=== PATIENT | female | born 1980 | race Two or more races ===

== ENCOUNTER 2024-08-26 16:58 | Inpatient (IN) | payer MEDICAID, OTHER ==
[~2024-08-26] VITALS: Ht 149.9 cm; Wt 92.5 kg
[2024-08-26] MEDS: ACETAMINOPHEN 325 MG TAB PO ONE (17:12)
[2024-08-26 17:49] LABS: Basophils # (auto) 0 10 ^3/uL (0-0.2); Basophils % (auto) 0.4 % (0.0-2.0); Eosinophils # (auto) 0 10 ^3/uL (0-0.8); Eosinophils % (auto) 0.1 % (0.0-7.0); Hematocrit 39.4 % (36.0-46.0); Hemoglobin 13.4 g/dL (12.2-16.2); Lymphocytes # (auto) 0.5 10 ^3/uL (0.4-5.4); Mean Corpuscular Hemoglobin 29.7 pg (28.0-32.0); Mean Corpuscular Volume 87.3 fL (80.0-100.0); Monocytes # (auto) 0.4 10 ^3/uL (0-1.3); Monocytes % (auto) 3.6 % (0.0-12.0); Neutrophils # (auto) 11.3 10 ^3/uL (1.6-8.6); Neutrophils % (auto) 91.9 % (37.0-80.0); Platelet Count (auto) 247 10^3/uL (140-450); Red Blood Cells 4.52 10^6/uL (4.0-5.20); Red Cell Distribution Width 13.7 % (11.8-14.3); White Blood Cell 12.3 10^3/uL (4.4-10.8)
--- NOTE | 2024-08-26 17:53 | DVH ---
Exam: CT CT AB PEL WO CON-NO ORAL OR IV History: abd pain Comparison Study: None TECHNIQUE: Multidetector CT of the abdomen and pelvis was performed from lung bases to pubic symphysi s. Imaging was performed without IV contrast. Axial, coronal, and sagittal multiplanar reformats were obtained from the axial data set by the technologist. RADIATION DOSE: DLP 1054.48 mGy.cm; CTDI vol 18.81 mGy. Findings: Lungs: The lung bases are clear. Heart: No cardiomegaly or pericardial effusion. Liver: Fatty infiltration of the liver. Liver measures 20.0 cm in craniocaudal dimension. Gallbladder: Cholecystectomy. Spleen: Unremarkable Pancreas: Unremarkable Adrenals: Unremarkable Kidneys: Punctate nonobstructive left nephrolithiasis. Mild left perinephric inflammatory changes. N o evidence of ureteral or urinary bladder calculi. GI tract: Unremarkable : Unremarkable. Vasculature: Unremarkable Lymphadenopathy: Absent Peritoneum: No ascites Musculoskeletal: Mild multilevel degenerative changes of the thoracolumbar spine. Soft tissues: Unremarkable Impression: 1. No acute abdominopelvic abnormalities. 2. Mild left perinephric inflammatory changes with nonobstructive left nephrolithiasis. Findings may reflect a recently passed calculus. 3. No evidence of ureteral or urinary bladder calculi. 4. Hepatomegaly with hepatic steatosis.
[2024-08-26] MEDS: VANCOMYCIN 1GM/200ML PM 200 ML IV ONE (17:54)
[2024-08-26] MEDS: cefTRIAXone 1GM/50ML D5W 50 ML IV ONE (17:54)
[2024-08-26] MEDS: SODIUM CHLORIDE 0.9% 1,350 ML IV ONE (17:54)
[2024-08-26 18:07] LABS: Urine Bacteria MOD /hpf (None Seen); Urine Blood Negative /uL (Negative); Urine Clarity Turbid (Clear); Urine Color Yellow (Yellow); Urine Mucus FEW (None Seen); Urine Protein, UAD Negative (Negative); Urine Specific Gravity 1.016 (1.001-1.035); Urine Squamous Epithelial Cell FEW /hpf (<5); Urine Urobilinogen 6 mg/dL (Negative); Urine WBC 70 /HPF (0-5)
[2024-08-26 18:08] LABS: Alanine Aminotransferase 21 U/L (7-40); Alkaline Phosphatase 97 U/L (46-116); Anion Gap 9 (5-15); Aspartate Aminotransferase 17 U/L (13-40); BUN/Creatinine Ratio 7.2 (10.0-20.0); Carbon Dioxide 21 mmol/L (20-31); Chloride 101 mmol/L (98-107); Lipase 33 U/L (12-53); Total Protein 7.5 g/dL (5.7-8.2)
[2024-08-26 18:09] LABS: Albumin 4.5 g/dL (3.2-4.8)
[2024-08-26 18:37] LABS: Bilirubin, Total 1.4 mg/dL (0.2-1.0); Blood Urea Nitrogen 6 mg/dL (9-23); Calcium 8.7 mg/dL (8.7-10.4); Glucose 201 mg/dL (74-106); Potassium 3.4 mmol/L (3.5-5.1); Sodium 131 mmol/L (136-145)
[2024-08-26 18:43] LABS: Lactic Acid w/Reflex 2.3 mmol/L (0.4-2.0)
--- NOTE | 2024-08-26 19:10 | ED.PDOC ---
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 Worse today. 01/30. States she does have history of frequent urinary tract infections. States the pain is more specifically in the left lower quadrant. Nothing makes it better, nothing makes it worse. States she has been having nausea vomiting diarrhea today. Intermittent chills. Upon arrival patient was tachycardic and does have fever. Chief Complaint: Pelvic Pain Time Seen by MD: 17:07 Reviewed Notes: Nurses Notes Allergies: Coded Allergies: NO KNOWN ALLERGIES (Unverified , 08/26/24) Information Source: Patient Past Medical History PAST MEDICAL HISTORY: Denies Surgical History: Denies all surgeries DRILL OPERATOR History: No Pertinent DRILL OPERATOR History Constitutional: reports: chills, fatigue, fever, malaise; denies: diaphoresis, sweats, weakness, others EENTM: denies: blurred vision, double vision, ear bleeding, ear discharge, ear drainage, ear pain, ear ringing, eye pain, eye redness, hearing loss, mouth pain, mouth swelling, nasal discharge, nose bleeding, nose congestion, nose pain, photophobia, tearing, throat pain, throat swelling, voice changes, others Respiratory: denies: cough, hemoptysis, orthopnea, SOB at rest, shortness of breath, SOB with excertion, stridor, wheezing, others Cardiovascular: denies: chest pain, dizzy spells, diaphoresis, Dyspnea on exertion, edema, irregular heart beat, left arm pain, lightheadedness, palpitations, PND, syncope, others Gastrointestinal: reports: abdominal pain, diarrhea, nausea, vomiting; denies: abdomen distended, blood streaked bowels, constipated, dysphagia, difficulty swallowing, hematemesis, melena, poor appetite, poor fluid intake, rectal bleeding, rectal pain, others Genitourinary: denies: abnormal vagina bleeding, burning, dyspareunia, dysuria, flank pain, frequency, hematuria, incontinence, pain, , vagina discharge, urgency, others Neurological: denies: dizziness, fainting, headache, left sided numbness, left sided weakness, numbness, paresthesia, pre-existing deficit, right sided numbness, right sided weakness, seizure, speech problems, tingling, tremors, weakness, others Musculoskeletal: denies: back pain, gout, joint pain, joint swelling, muscle pain, muscle stiffness, neck pain, others Integumetry: denies: bruises, change in color, change in hair/nails, dryness, laceration, lesions, lumps, rash, wounds, others Physical Exam General Appearance: Moderate Distress, Obese HEENT: Normal ENT Inspection, Pharynx Normal, TMs Normal Neck: Full Range of Motion, Non-Tender, Normal, Normal Inspection Respiratory: Chest Non-Tender, Lungs Clear, No Accessory Muscle Use, No Respiratory Distress, Normal Breath Sounds Cardiovascular: No Edema, No JVD, No Murmur, No Gallop, Normal Peripheral Pulses, Regular Rate/Rhythm Breast Exam: Deferred Gastrointestinal: Diffuse (Diffuse lower quadrant tenderness.), No Organomegaly, Normal Bowel Sounds, Soft Genitalia: Deferred Pelvic: Deferred Rectal: Deferred Extremities: No calf tenderness, Normal capillary refill, Normal inspection, Normal range of motion, Non-tender, No pedal edema Musculoskeletal : Apperance: Normal Neurologic: Alert, technical asst II-XII nml as Tested, No Motor Deficits, Normal Affect, Normal Mood, No Sensory Deficits Cerebellar Function: Normal Reflexes: Normal Skin: Dry, Normal Color, Warm Lymphatic: No Adenopathy Was a procedure done? Was a procedure done?: No Differential Diagnosis (DRILL OPERATOR) Vaginal Bleeding: UTI Mass / Lesion: PID Vaginal Discharge: UTI X-Ray, Labs, Meds, VS Vital Signs Date Time Temp Pulse Resp B/P (MAP) Pulse Ox O2 Delivery O2 Flow Rate FiO2 08/26/24 18:31 99.7 104 15 117/67 (84) 98 99.7 08/26/24 17:12 101.0 08/26/24 17:02 101.0 120 24 129/78 (95) 100 101.0 Lab Test 08/26/24 17:45 08/26/24 17:36 08/26/24 17:09 Range/Units Lactic Acid Level 2.3 *H 0.4-2.0 mmol/L White Blood Count 12.3 H 4.4-10.8 10^3/uL Red Blood Count 4.52 4.0-5.20 10^6/uL Hemoglobin 13.4 12.2-16.2 g/dL Hematocrit 39.4 36.0-46.0 % Mean Corpuscular Volume 87.3 80.0-100.0 fL Mean Corpuscular Hemoglobin 29.7 28.0-32.0 pg Mean Corpuscular Hemoglobin Concent 34.0 32.0-36.0 g/dL Red Cell Distribution Width 13.7 11.8-14.3 % Platelet Count 247 140-450 10^3/uL Mean Platelet Volume 6.7 L 6.9-10.8 fL Neutrophils (%) (Auto) 91.9 H 37.0-80.0 % Lymphocytes (%) (Auto) 4.0 L 10.0-50.0 % Monocytes (%) (Auto) 3.6 0.0-12.0 % Eosinophils (%) (Auto) 0.1 0.0-7.0 % Basophils (%) (Auto) 0.4 0.0-2.0 % Neutrophils # (Auto) 11.3 H 1.6-8.6 10 ^3/uL Lymphocytes # (Auto) 0.5 0.4-5.4 10 ^3/uL Monocytes # (Auto) 0.4 0-1.3 10 ^3/uL Eosinophils # (Auto) 0 0-0.8 10 ^3/uL Basophils # (Auto) 0 0-0.2 10 ^3/uL Nucleated Red Blood Cells 0.0 % Sodium Level 131 L 136-145 mmol/L Potassium Level 3.4 L 3.5-5.1 mmol/L Chloride Level 101 98-107 mmol/L Carbon Dioxide Level 21 20-31 mmol/L Anion Gap 9 5-15 Blood Urea Nitrogen 6 L 9-23 mg/dL Creatinine 0.83 0.550-1.02 mg/dL Glomerular Filtration Rate Calc 89 >90 mL/min BUN/Creatinine Ratio 7.2 L 10.0-20.0 Serum Glucose 201 H 74-106 mg/dL Calcium Level 8.7 8.7-10.4 mg/dL Total Bilirubin 1.4 H 0.2-1.0 mg/dL Aspartate Amino Transferase (AST) 17 13-40 U/L Alanine Aminotransferase (ALT) 21 7-40 U/L Alkaline Phosphatase 97 46-116 U/L Total Protein 7.5 5.7-8.2 g/dL Albumin 4.5 3.2-4.8 g/dL Lipase 33 12-53 U/L Urine Color Yellow Yellow Urine Clarity Turbid H Clear Urine pH 6.0 5.0-9.0 Urine Specific [place] 1.016 1.001-1.035 Urine Protein Negative Negative Urine Ketones Negative Negative Urine Blood Negative Negative /uL Urine Nitrite Negative Negative Urine Bilirubin Negative Negative Urine Urobilinogen 6 Negative mg/dL Urine Leukocyte Esterase 3+ Negative /uL Urine RBC 1 0 - 4 /hpf Urine Microscopic WBC 70 H 0-5 /HPF Urine Squamous Epithelial Cells Few <5 /hpf Urine Bacteria Mod H None Seen /hpf Urine Mucus Few None Seen Urine Glucose 3+ H Normal mg/dL Current Medications Medications (Trade) Dose Ordered Sig/Pedro Route Start Time Stop Time Status Last Admin Acetaminophen (Tylenol Tablet) 650 mg ONCE ONCE PO 08/26/24 17:15 08/26/24 17:16 DC 08/26/24 17:12 Ceftriaxone Sodium 50 ml @ 100 mls/hr ONCE ONCE IV 08/26/24 17:45 08/26/24 18:14 DC 08/26/24 17:54 Vancomycin HCl 200 ml @ 200 mls/hr ONCE ONCE IV 08/26/24 17:45 08/26/24 18:44 DC 08/26/24 17:54 Sodium Chloride 1,350 ml @ 1,350 mls/hr ONCE ONCE IV 08/26/24 17:45 08/26/24 18:44 DC 08/26/24 17:54 X-Ray, Labs, Meds, VS Comment Patient will be admitted for urinary tract infection, urosepsis Sepsis protocol started, patient given vancomycin and Rocephin Initial IV bolus given, 2nd IV bolus to be initiated Imaging: X-rays and CT scans were reviewed and interpreted by this provider, Impression: 1. No acute abdominopelvic abnormalities. 2. Mild left perinephric inflammatory changes with nonobstructive left nephrolithiasis. Findings may reflect a recently passed calculus. 3. No evidence of ureteral or urinary bladder calculi. 4. Hepatomegaly with hepatic steatosis. Laboratory: Labs reviewed and interpreted by this provider. Elevated white count, elevated lactic acid Patient has prior medical visits reviewed. Med reconciliation performed Vital signs reviewed Time of 1ST Reevaluation: 19:08 Reevaluation 1ST: Unchanged Patient Education/Counseling: Diagnosis, Treatment, Need For Follow Up Family Education/Counseling: No Family Present Departure 1 Departure Time of Disposition: 19:05 Impression: Primary Impression: Septicemia Additional Impression: Urinary tract infection Qualified Codes: N10 - Acute pyelonephritis Disposition: 09 ADMITTED INPATIENT Condition: Guarded Critical Care Note Critical Care Time?: No Stability Stability form required: No Heart Score Heart Score: Heart Score Response (Comments) Value History N/A 0 EKG N/A 0 Age N/A 0 Risk Factors N/A 0 Troponin N/A 0 Total 0 CONCHITA MELLOP August 26, 2024 19:10
[2024-08-26] MEDS: SODIUM CHLORIDE 0.9% 1,000 ML IV ONE (19:52)
[2024-08-26] MEDS ORDERED: ONDANSETRON HCL 4 MG/2 ML VIAL IV PRN (20:00)
[2024-08-26 21:30] VITALS: PULSE 116; RESP 20; O2SAT 96
[2024-08-26] MEDS: POTASSIUM CHL 20 Meq TABLET PO ONE (21:38)
[2024-08-26] MEDS: ACETAMINOPHEN 325 MG TAB PO PRN (21:39)
[2024-08-26 21:55] VITALS: PULSE 119; RESP 20; O2SAT 96
[2024-08-27] VITALS (7 sets, daily range): BP systolic 119–141; BP diastolic 66–77; PULSE 88–134; RESP 14–71; TEMP 97.8–102.1; O2SAT 94–98
[2024-08-27] MEDS: HYDROcodone-ACET 5/325MG TAB PO PRN (01:21)
--- NOTE | 2024-08-27 04:02 | DVHHP2 ---
History of Present Illness Reason for Visit: Abdominal pain History of Present Illness 44-year-old female presents for evaluation of lower abdominal pain. Patient reports a two day history of lower abdominal pain with associated dysuria, nausea, vomiting. Patient also reports intermittent fever. She states having a history of recurrent UTIs. Past Medical History UTI Past Surgical History Denies Family History Noncontributory Smoke: No ALCOHOL: none Drugs: None Lives: with Family Review of Systems Review of Systems Review of systems are currently negative otherwise addressed in HPI. Allergies: Coded Allergies: NO KNOWN ALLERGIES (Unverified , 08/26/24) Medications Current Medications Medications Dose Ordered Sig/Pedro Route Start Time Stop Time Status Last Admin Dose Admin Ceftriaxone Sodium 50 ml @ 100 mls/hr DAILY@09 IV 08/27/24 09:00 Acetaminophen/ Hydrocodone Bitart 1 tab Q4HP PRN PO 08/26/24 20:00 08/27/24 01:21 1 TAB Ondansetron HCl 4 mg Q4HP PRN IV 08/26/24 20:00 Acetaminophen 650 mg Q6HP PRN PO 08/26/24 20:00 08/26/24 21:39 650 MG Exam Vital Signs Vital Signs Date Time Temp Pulse Resp B/P (MAP) Pulse Ox O2 Delivery O2 Flow Rate FiO2 08/27/24 01:00 98.5 119 20 120/67 (84) 96 98.5 08/26/24 21:55 Nasal Cannula* 2 28 Exam Gen: 44-year-old female in mild distress Skin: Warm, dry, normal color and texture, no rash. HEENT: Normocephalic atraumatic, mucous membranes moist and pink. Neck: Cervical and supraclavicular nodes normal without enlargement, trachea is midline, thyroid gland is normal without masses. Pulmonary: Clear to auscultation and percussion bilaterally. Cardiac: Regular rate and rhythm. No murmur Abdomen: Soft, lower abdominal tenderness, nondistended, bowel sounds present all 4 quadrants, no guarding, no rigidity, no organomegaly. Extremities: No cyanosis, clubbing, no edema Neuro: Cranial nerves II through XII grossly intact, normal affect and speech, no focal motor deficits. Labs/Xrays ORDERING PHYSICIAN: CONCHITA MELLO PROCEDURE(s): ABPL - CT AB PEL WO CON-NO ORAL OR IV REASON: abd pain ORDER NUMBER(s): [id number], ACCESSION NUMBER(s): [id number] Exam: CT CT AB PEL WO CON-NO ORAL OR IV History: abd pain Comparison Study: None TECHNIQUE: Multidetector CT of the abdomen and pelvis was performed from lung bases to pubic symphysis. Imaging was performed without IV contrast. Axial, coronal, and sagittal multiplanar reformats were obtained from the axial data set by the technologist. RADIATION DOSE: DLP 1054.48 mGy.cm; CTDI vol 18.81 mGy. Findings: Lungs: The lung bases are clear. Heart: No cardiomegaly or pericardial effusion. Liver: Fatty infiltration of the liver. Liver measures 20.0 cm in craniocaudal dimension. Gallbladder: Cholecystectomy. Spleen: Unremarkable Pancreas: Unremarkable Adrenals: Unremarkable Kidneys: Punctate nonobstructive left nephrolithiasis. Mild left perinephric inflammatory changes. No evidence of ureteral or urinary bladder calculi. GI tract: Unremarkable : Unremarkable. Vasculature: Unremarkable Lymphadenopathy: Absent Peritoneum: No ascites Musculoskeletal: Mild multilevel degenerative changes of the thoracolumbar spine. Soft tissues: Unremarkable Impression: 1. No acute abdominopelvic abnormalities. 2. Mild left perinephric inflammatory changes with nonobstructive left nephrolithiasis. Findings may reflect a recently passed calculus. 3. No evidence of ureteral or urinary bladder calculi. 4. Hepatomegaly with hepatic steatosis. ATED BY: SONI ZUÑIGA DO DICTATED DATE/TIME: 08/26/24 7324 Labs Test 08/26/24 19:37 08/26/24 17:36 08/26/24 17:09 Range/Units Lactic Acid Level 1.7 0.4-2.0 mmol/L White Blood Count 12.3 H 4.4-10.8 10^3/uL Red Blood Count 4.52 4.0-5.20 10^6/uL Hemoglobin 13.4 12.2-16.2 g/dL Hematocrit 39.4 36.0-46.0 % Mean Corpuscular Volume 87.3 80.0-100.0 fL Mean Corpuscular Hemoglobin 29.7 28.0-32.0 pg Mean Corpuscular Hemoglobin Concent 34.0 32.0-36.0 g/dL Red Cell Distribution Width 13.7 11.8-14.3 % Platelet Count 247 140-450 10^3/uL Mean Platelet Volume 6.7 L 6.9-10.8 fL Neutrophils (%) (Auto) 91.9 H 37.0-80.0 % Lymphocytes (%) (Auto) 4.0 L 10.0-50.0 % Monocytes (%) (Auto) 3.6 0.0-12.0 % Eosinophils (%) (Auto) 0.1 0.0-7.0 % Basophils (%) (Auto) 0.4 0.0-2.0 % Neutrophils # (Auto) 11.3 H 1.6-8.6 10 ^3/uL Lymphocytes # (Auto) 0.5 0.4-5.4 10 ^3/uL Monocytes # (Auto) 0.4 0-1.3 10 ^3/uL Eosinophils # (Auto) 0 0-0.8 10 ^3/uL Basophils # (Auto) 0 0-0.2 10 ^3/uL Nucleated Red Blood Cells 0.0 % Sodium Level 131 L 136-145 mmol/L Potassium Level 3.4 L 3.5-5.1 mmol/L Chloride Level 101 98-107 mmol/L Carbon Dioxide Level 21 20-31 mmol/L Anion Gap 9 5-15 Blood Urea Nitrogen 6 L 9-23 mg/dL Creatinine 0.83 0.550-1.02 mg/dL Glomerular Filtration Rate Calc 89 >90 mL/min BUN/Creatinine Ratio 7.2 L 10.0-20.0 Serum Glucose 201 H 74-106 mg/dL Calcium Level 8.7 8.7-10.4 mg/dL Total Bilirubin 1.4 H 0.2-1.0 mg/dL Aspartate Amino Transferase (AST) 17 13-40 U/L Alanine Aminotransferase (ALT) 21 7-40 U/L Alkaline Phosphatase 97 46-116 U/L Total Protein 7.5 5.7-8.2 g/dL Albumin 4.5 3.2-4.8 g/dL Lipase 33 12-53 U/L Urine Color Yellow Yellow Urine Clarity Turbid H Clear Urine pH 6.0 5.0-9.0 Urine Specific [place] 1.016 1.001-1.035 Urine Protein Negative Negative Urine Ketones Negative Negative Urine Blood Negative Negative /uL Urine Nitrite Negative Negative Urine Bilirubin Negative Negative Urine Urobilinogen 6 Negative mg/dL Urine Leukocyte Esterase 3+ Negative /uL Urine RBC 1 0 - 4 /hpf Urine Microscopic WBC 70 H 0-5 /HPF Urine Squamous Epithelial Cells Few <5 /hpf Urine Bacteria Mod H None Seen /hpf Urine Mucus Few None Seen Urine Glucose 3+ H Normal mg/dL Assessment/Plan Assessment/Plan Assessment Complicated UTI Early sepsis Hyperglycemia Plan Admit the patient to [facility] to the hospitalist Kye Urine bacterial culture pending Continue treatment per orders. Plan discussed with: Patient My Orders Orders - LINDA JACOBSEN Procedure Category Date Status Time Urine Bacterial ERICK 08/26/24 In Process Culture 19:55 Regular Diet DIET 08/27/24 Transmitted Breakfast Ceftriaxone 1gm/50ml PHA 08/27/24 In Process D5w (Rocephin) 09:00 Basic Metabolic Panel LAB 08/27/24 Logged 04:00 Admit ADMIT 08/26/24 Transmitted 19:55 Hydrocodone-Acet PHA 08/26/24 In Process 5/325mg Tab ([place] 20:00 Ondansetron Hcl PHA 08/26/24 In Process (Zofran) 20:00 Complete Blood Count LAB 08/27/24 Logged 04:00 Condition: Stable FRANKY 08/26/24 In Process 19:55 Acetaminophen Tablet PHA 08/26/24 In Process (Tylenol Tablet) 20:00 Bedrest With Bathroom FRANKY 08/26/24 In Process Privileg 19:55 Date of Service: August 26, 2024 Billing Provider: LINDA JACOBSEN Common Visit Codes: [id number] INP/OBS CARE (MOD) LINDA JACOBSEN August 27, 2024 04:02
[2024-08-27 06:42] LABS: Basophils # (auto) 0 10 ^3/uL (0-0.2); Basophils % (auto) 0.3 % (0.0-2.0); Eosinophils # (auto) 0 10 ^3/uL (0-0.8); Hematocrit 39.4 % (36.0-46.0); Hemoglobin 13.1 g/dL (12.2-16.2); Lymphocytes # (auto) 0.5 10 ^3/uL (0.4-5.4); Lymphocytes % (auto) 5.5 % (10.0-50.0); Mean Corpuscular Hemoglobin 30.5 pg (28.0-32.0); Mean Corpuscular Hgb Conc. 33.4 g/dL (32.0-36.0); Mean Corpuscular Volume 91.3 fL (80.0-100.0); Monocytes # (auto) 0.7 10 ^3/uL (0-1.3); Monocytes % (auto) 8.2 % (0.0-12.0); Neutrophils # (auto) 7.5 10 ^3/uL (1.6-8.6); Nucleated Red Blood Cells % 0.1 %; Platelet Count (auto) 195 10^3/uL (140-450); Red Blood Cells 4.31 10^6/uL (4.0-5.20); Red Cell Distribution Width 13.6 % (11.8-14.3); White Blood Cell 8.7 10^3/uL (4.4-10.8)
[2024-08-27 06:46] LABS: Chloride 106 mmol/L (98-107); Potassium 3.6 mmol/L (3.5-5.1)
[2024-08-27 06:47] LABS: Anion Gap 9 (5-15); Carbon Dioxide 20 mmol/L (20-31)
[2024-08-27 06:53] LABS: BUN/Creatinine Ratio 6.4 (10.0-20.0); Blood Urea Nitrogen 5 mg/dL (9-23); Glucose 183 mg/dL (74-106); Sodium 135 mmol/L (136-145)
[2024-08-27] MEDS: cefTRIAXone 1GM/50ML D5W 50 ML IV SCH (08:24)
[2024-08-27 09:22] LABS: Amphetamine Screen, Urine Pos (NEGATIVE); Barbiturate Scree,Urine Neg (NEGATIVE); Benzodiazephine Screen, Urine Neg (NEGATIVE); Cannabinoid Screen, Urine Pos (NEGATIVE); Cocaine Screen, Urine Neg (NEGATIVE); Opiate Scree,Urine Neg (NEGATIVE); Phencyclidine Screen, Urine Neg (NEGATIVE)
[2024-08-27 09:27] LABS: Thyroid Stimulating Hormone 0.57 uIU/mL (0.55-4.78)
--- NOTE | 2024-08-27 09:27 | DVHPNRES ---
Progress Note Date Seen: August 27, 2024 Resident Creating Document: KARLY PICKETT RESIDENT Medical Necessity Reason Pt with a Central, PICC or Fol: No Subjective Review of Systems Jennifer Aldana is a 44-year-old female with no significant PMH presented to the ED with a chief complaint of lower abdominal pain since 2 days prior to admission. Patient reported pain and has been started slowly in lower abdomen mostly in left lower quadrant associated with the nausea but no vomiting or diarrhea. The patient also reported she has been having some fevers. The patient denies other associated symptoms. PMH: Recurrent UTIs PSH: Family history: Noncontributory Personal history: Lives with family. Denies smoking, alcohol and other drug abuse allergies no known allergies Patient is seen and examined at the bedside. Patient reported a pain in left lower quadrant But reported no new complaints. Objective vital signs Vital Sign Date Time Temp Pulse Resp B/P (MAP) Pulse Ox O2 Delivery O2 Flow Rate FiO2 08/27/24 08:52 102.1 114 16 134/74 (94) 95 102.1 08/26/24 21:55 Nasal Cannula* 2 28 Total Intake and Output 08/26/24 08/26/24 08/27/24 15:00 23:00 07:00 Intake Total 1000 ml 500 ml Balance 1000 ml 500 ml medications Current Medications Medications Dose Ordered Sig/Pedro Route Start Time Stop Time Status Last Admin Dose Admin Ceftriaxone Sodium 50 ml @ 100 mls/hr DAILY@09 IV 08/27/24 09:00 08/27/24 08:24 100 MLS/HR Acetaminophen/ Hydrocodone Bitart 1 tab Q4HP PRN PO 08/26/24 20:00 08/27/24 01:21 1 TAB Ondansetron HCl 4 mg Q4HP PRN IV 08/26/24 20:00 Acetaminophen 650 mg Q6HP PRN PO 08/26/24 20:00 08/27/24 08:29 650 MG Examination Pt is lying on bed General Appearance: Alert, Oriented X3, Cooperative, Not in acute distress HEENT: Atraumatic, Mucous membranes moist/pink Respiratory: Clear to auscultation, Normal air movement, No added sounds Cardiovascular: Regular rate, Normal S1, Normal S2, No murmurs Abdominal: LLQ, left flank tenderness. Active bowel sounds, Soft, no distention, Extremities: No edema, Normal pulses, No tenderness/swelling Skin: No Significant rash, except past surgical scars Neuro: Normal speech, sensorimotor deficits none Psych/Mental Status: Mental status NL, Mood NL Nurse was there as nikolasne during examination laboratory and microbiology Laboratory Tests 08/27/24 05:51 Test 08/27/24 05:51 Range/Units Serum Glucose 183 H 74-106 mg/dL Microbiology Date/Time Source Procedure Growth Status 08/26/24 17:53 Blood Blood Culture - Preliminary Resulted 08/26/24 17:09 Voided Urine Urine Culture - Preliminary Resulted Labs and/or images reviewed: Labs reviewed by me, Image(s) reviewed by me Problem List/Assessment/Plan Problem List/Assessment/Plan # ? Pyelonephritis # Sepsis from underlying pyelonephritis # Acute complicated cystitis # Nonobstructive left nephrolithiasis - evident on urinalysis - CT abdominal pelvis showed mild left perinephric inflammatory changes along with nonobstructive left nephrolithiasis - ordered urine/blood culture - currently on Rocephin 1 g daily - tamsulosin and give IVF - pain management as needed - Zofran as needed # Hypokalemia - Repleting - Monitor lab # hepatic steatosis with hepatomegaly # mild hyperbilirubinemia - evident on CT, required outpatient follow up with the GI - and dietary modifications # morbid obesity with a BMI 39.1 - dietary counseling and lifestyle modification changes # hypomagnesemia -repleting # Vit D deficiency - Repleting No GI PPX needed No VTE PPX needed as patient is ambulatory Regular diet Goals of care discussed with the patient for more than 29 minutes: Full code status Case discussed with Dr. Castle, patient and RN Plan discussed with: Patient My Orders My Orders Orders - KARLY PICKETT RESIDENT Procedure Category Date Status Time Beta Hcg, Quantitative LAB 08/27/24 In Process 08:23 Vitamin B12 LAB 08/27/24 In Process 08:23 Thyroid Stimulating LAB 08/27/24 In Process Hormone 08:23 Blood Alcohol LAB 08/27/24 In Process 08:23 Hepatic Panel LAB 08/27/24 In Process 08:23 Magnesium LAB 08/27/24 In Process 08:23 Sodium Chloride 0.9% PHA 08/27/24 In Process 09:30 Tamsulosin PHA 08/27/24 Logged Hydrochloride (Flomax) 09:30 Tamsulosin PHA 08/27/24 Logged Hydrochloride (Flomax) 18:00 KARLY PICKETT RESIDENT August 27, 2024 09:27
[2024-08-27 09:28] LABS: Beta HCG, Quantitative 0.3 mIU/mL (1.5-4.2)
[2024-08-27 09:31] LABS: Alanine Aminotransferase 26 U/L (7-40); Albumin 3.8 g/dL (3.2-4.8); Alkaline Phosphatase 98 U/L (46-116); Aspartate Aminotransferase 37 U/L (13-40); Bilirubin, Total 1.2 mg/dL (0.2-1.0); Total Protein 6.4 g/dL (5.7-8.2)
[2024-08-27 09:33] LABS: Bilirubin, Direct 0.4 mg/dL (<0.3); Blood Alcohol < 3.0 mg/dL (<10); Magnesium 1.4 mg/dL (1.6-2.6)
[2024-08-27] MEDS: TAMSULOSIN HYDROCHLORIDE 0.4 MG CAP PO ONE (11:39)
[2024-08-27] MEDS: ERGOCALCIFEROL 50,000 UNIT(1.25MG) CAP PO SCH (11:39)
[2024-08-27] MEDS: MAGNESIUM SULFATE 1GM/100ML 100 ML IV SCH (11:40)
--- NOTE | 2024-08-27 12:05 | DVH ---
INDICATION: r/o hydronephrosis TECHNIQUE: Multiple real-time sonographic images of the kidneys and bladder were obtained. COMPARISON: None FINDINGS: The right kidney measures 10 cm in length, which is normal in size. There is normal echogen icity of the right kidney. No hydronephrosis. The left kidney measures 12 cm in length, which is normal in size. There is normal echogenicity of th e left kidney. No hydronephrosis. 8 mm left upper pole renal calculus. No large intraluminal masses are seen in the bladder. IMPRESSION: 1. Normal sonographic appearance of the kidneys. No hydronephrosis. 2. 8 mm left upper pole renal calculus.
[2024-08-27] MEDS: SODIUM CHLORIDE 0.9% 1,000 ML IV SCH (16:14)
[2024-08-28] VITALS (8 sets, daily range): BP systolic 125–150; BP diastolic 75–96; PULSE 97–120; RESP 16–19; TEMP 97.7–100.7; O2SAT 94–98
[2024-08-28 06:56] LABS: Alkaline Phosphatase 99 U/L (46-116); Anion Gap 10 (5-15); Carbon Dioxide 21 mmol/L (20-31); Magnesium 1.7 mg/dL (1.6-2.6); Sodium 138 mmol/L (136-145); Total Protein 6.2 g/dL (5.7-8.2)
[2024-08-28 06:57] LABS: Albumin 3.6 g/dL (3.2-4.8)
[2024-08-28 06:58] LABS: Bilirubin, Total 0.5 mg/dL (0.2-1.0)
[2024-08-28 07:02] LABS: Alanine Aminotransferase 44 U/L (7-40); Aspartate Aminotransferase 53 U/L (13-40); BUN/Creatinine Ratio 8.1 (10.0-20.0); Blood Urea Nitrogen < 5 mg/dL (9-23); Calcium 7.9 mg/dL (8.7-10.4); Chloride 107 mmol/L (98-107); Glucose 175 mg/dL (74-106); Potassium 3.4 mmol/L (3.5-5.1)
[2024-08-28 07:49] LABS: Basophils # (auto) 0 10 ^3/uL (0-0.2); Basophils % (auto) 0.6 % (0.0-2.0); Eosinophils # (auto) 0 10 ^3/uL (0-0.8); Eosinophils % (auto) 0.8 % (0.0-7.0); Hematocrit 33.8 % (36.0-46.0); Hemoglobin 11.6 g/dL (12.2-16.2); Lymphocytes # (auto) 0.5 10 ^3/uL (0.4-5.4); Lymphocytes % (auto) 11.7 % (10.0-50.0); Mean Corpuscular Hemoglobin 29.7 pg (28.0-32.0); Mean Corpuscular Hgb Conc. 34.3 g/dL (32.0-36.0); Mean Corpuscular Volume 86.8 fL (80.0-100.0); Monocytes # (auto) 0.2 10 ^3/uL (0-1.3); Monocytes % (auto) 3.9 % (0.0-12.0); Neutrophils # (auto) 3.5 10 ^3/uL (1.6-8.6); Nucleated Red Blood Cells % 0.1 %; Platelet Count (auto) 169 10^3/uL (140-450); Red Cell Distribution Width 13.4 % (11.8-14.3); White Blood Cell 4.2 10^3/uL (4.4-10.8)
[2024-08-28] MEDS ORDERED: DEXTROSE (50%) 50ML SYRG IV PRN (08:00)
[2024-08-28] MEDS: LACTULOSE 20Gm/30ML SOLN PO ONE (10:02)
[2024-08-28] MEDS: POTASSIUM EFFERVESENT TAB 25 MEQ PO ONE (10:02)
[2024-08-28] MEDS: CYANOCOBALAMIN (B-12) 1000 MCG/1 ML VIAL IM ONE (10:04)
--- NOTE | 2024-08-28 10:04 | DVHPNRES ---
Progress Note Date Seen: August 28, 2024 Resident Creating Document: KARLY PICKETT RESIDENT Medical Necessity Reason Pt with a Central, PICC or Fol: No Subjective Review of Systems Jennifer Aldana is a 44-year-old female with no significant PMH presented to the ED with a chief complaint of lower abdominal pain since 2 days prior to admission. Patient is seen and examined at the bedside. patient reported improvement in her abdominal pain since admission but she reporting she has not passed stool since admission, given lactulose. He does not reporting mild headaches, Tylenol given. Overnight events reviewed, patient reported mild fevers. Objective vital signs Vital Sign Date Time Temp Pulse Resp B/P (MAP) Pulse Ox O2 Delivery O2 Flow Rate FiO2 08/28/24 09:00 100.7 110 16 130/75 (93) 96 100.7 08/27/24 20:00 Room Air* 0 21 Total Intake and Output 08/27/24 08/27/24 08/28/24 15:00 23:00 07:00 Intake Total 50 ml 970 ml 1350 ml Balance 50 ml 970 ml 1350 ml medications Current Medications Medications Dose Ordered Sig/Pedro Route Start Time Stop Time Status Last Admin Dose Admin Ceftriaxone Sodium 50 ml @ 100 mls/hr DAILY@09 IV 08/27/24 09:00 08/27/24 08:24 100 MLS/HR Acetaminophen/ Hydrocodone Bitart 1 tab Q4HP PRN PO 08/26/24 20:00 08/27/24 16:11 1 TAB Ondansetron HCl 4 mg Q4HP PRN IV 08/26/24 20:00 Acetaminophen 650 mg Q6HP PRN PO 08/26/24 20:00 08/27/24 23:54 650 MG Sodium Chloride 1,000 ml @ 125 mls/hr Q8H IV 08/27/24 09:30 08/28/24 02:30 125 MLS/HR Tamsulosin HCl 0.4 mg QPM PO 08/28/24 18:00 Ergocalciferol 50,000 unit Q7D PO 08/27/24 10:30 08/27/24 11:39 50,000 UNIT Diagnostic Test (Pha) 1 strip ACHS 08/28/24 11:30 Insulin Human Regular ACHS SC 08/28/24 11:30 Dextrose 50 ml UD PRN IV 08/28/24 08:00 Examination Pt is lying on bed General Appearance: Alert, Oriented X3, Cooperative, Not in acute distress HEENT: Atraumatic, Mucous membranes moist/pink Respiratory: Clear to auscultation, Normal air movement, No added sounds Cardiovascular: Regular rate, Normal S1, Normal S2, No murmurs Abdominal: LLQ, left flank tenderness. Active bowel sounds, Soft, no distention, Extremities: No edema, Normal pulses, No tenderness/swelling Skin: No Significant rash, except past surgical scars Neuro: Normal speech, sensorimotor deficits none Psych/Mental Status: Mental status NL, Mood NL Nurse was there as sharperone during examination laboratory and microbiology Laboratory Tests 08/28/24 05:26 Test 08/28/24 05:26 Range/Units Serum Glucose 175 H 74-106 mg/dL Microbiology Date/Time Source Procedure Growth Status 08/26/24 17:53 Blood Blood Culture - Preliminary Resulted 08/26/24 17:09 Voided Urine Urine Culture - Preliminary Resulted Labs and/or images reviewed: Labs reviewed by me, Image(s) reviewed by me Problem List/Assessment/Plan Problem List/Assessment/Plan # ? Pyelonephritis # Sepsis from underlying pyelonephritis # Acute complicated cystitis # Gram-negative bacteremia # Nonobstructive left nephrolithiasis - evident on urinalysis - CT abdominal pelvis showed mild left perinephric inflammatory changes along with nonobstructive left nephrolithiasis - ordered urine/blood culture- Gram-negative bacteremia - DC Rocephin - currently cefepime 1 g - tamsulosin and give IVF - pain management as needed - Zofran as needed # Hypokalemia- improving - Repleting - Monitor lab # hepatic steatosis with hepatomegaly # mild hyperbilirubinemia - evident on CT, required outpatient follow up with the GI - and dietary modifications # morbid obesity with a BMI 39.1 - dietary counseling and lifestyle modification changes # hypomagnesemia- improved -repleting # Vit D deficiency - Repleting No GI PPX needed No VTE PPX needed as patient is ambulatory Regular diet Goals of care discussed with the patient for more than 29 minutes: Full code status Case discussed with Dr. Castle, patient and RN Plan discussed with: Patient My Orders My Orders Orders - KARLY PICKETT RESIDENT Procedure Category Date Status Time Kidney US 08/27/24 Resulted 10:27 Ergocalciferol PHA 08/27/24 In Process (Vitamin D 50,000 10:30 Transfer Orders XFER 08/27/24 Transmitted 10:41 Glucose Blood PHA 08/28/24 In Process (Accu-Chek Comfort 11:30 Insulin R (Human) PHA 08/28/24 In Process (Insulin R) 11:30 Dextrose 50% Syringe PHA 08/28/24 In Process 08:00 Cyanocobalamin PHA 08/28/24 In Process Injection (Vitamin 08:45 KARLY PICKETT RESIDENT August 28, 2024 10:04
[2024-08-28] MEDS: ACCU-CHEK COMFORT CURVE STRIP VI SCH (11:39)
[2024-08-28] MEDS: CEFEPIME 1GM/ 50ML 50 ML IV ONE (11:46)
[2024-08-28] MEDS: InsuLIN REG 1unit/0.01ml Soln (100units/ml) SC SCH (11:49)
--- NOTE | 2024-08-28 13:22 | DVH ---
CHEST RADIOGRAPH Indication: COUGH Technique: Single frontal view of the chest was obtained Comparison: None FINDINGS: Lines and Tubes: None Lungs: No focal consolidation. Pleura: No effusion. No pneumothorax. Cardiomediastinal contours: Unremarkable Bones: No acute osseous abnormality. IMPRESSION: Cardiomegaly with mild CHF
[2024-08-28] MEDS: CEFEPIME 1GM/ 50ML 50 ML IV SCH (17:37)
[2024-08-28] MEDS: TAMSULOSIN HYDROCHLORIDE 0.4 MG CAP PO SCH (17:37)
[2024-08-29] VITALS (8 sets, daily range): BP systolic 122–150; BP diastolic 72–98; PULSE 93–112; RESP 14–20; TEMP 97.4–98.8; O2SAT 93–100
[2024-08-29 06:15] LABS: Basophils # (auto) 0 10 ^3/uL (0-0.2); Basophils % (auto) 0.7 % (0.0-2.0); Eosinophils # (auto) 0 10 ^3/uL (0-0.8); Eosinophils % (auto) 0.8 % (0.0-7.0); Hematocrit 34.1 % (36.0-46.0); Hemoglobin 11.6 g/dL (12.2-16.2); Lymphocytes # (auto) 0.8 10 ^3/uL (0.4-5.4); Lymphocytes % (auto) 13.9 % (10.0-50.0); Mean Corpuscular Hemoglobin 29.8 pg (28.0-32.0); Mean Corpuscular Hgb Conc. 34.1 g/dL (32.0-36.0); Mean Corpuscular Volume 87.4 fL (80.0-100.0); Monocytes # (auto) 0.4 10 ^3/uL (0-1.3); Monocytes % (auto) 6.9 % (0.0-12.0); Neutrophils # (auto) 4.6 10 ^3/uL (1.6-8.6); Neutrophils % (auto) 77.7 % (37.0-80.0); Nucleated Red Blood Cells % 0.1 %; Platelet Count (auto) 193 10^3/uL (140-450); Red Cell Distribution Width 13.6 % (11.8-14.3)
[2024-08-29 06:21] LABS: Anion Gap 12 (5-15); Carbon Dioxide 21 mmol/L (20-31); Chloride 106 mmol/L (98-107); Potassium 3.6 mmol/L (3.5-5.1); Sodium 139 mmol/L (136-145); Total Protein 6.8 g/dL (5.7-8.2)
[2024-08-29 06:22] LABS: Albumin 3.9 g/dL (3.2-4.8)
[2024-08-29 06:23] LABS: Bilirubin, Total 0.3 mg/dL (0.2-1.0)
[2024-08-29 06:40] LABS: Alanine Aminotransferase 61 U/L (7-40); Alkaline Phosphatase 137 U/L (46-116); Aspartate Aminotransferase 56 U/L (13-40); BUN/Creatinine Ratio 7.8 (10.0-20.0); Blood Urea Nitrogen < 5 mg/dL (9-23); Calcium 8.5 mg/dL (8.7-10.4); Glucose 185 mg/dL (74-106)
[2024-08-29] MEDS: cefTRIAXone 1GM/50ML D5W 50 ML IV ONE (11:36)
--- NOTE | 2024-08-29 14:33 | DVHPNRES ---
Progress Note Date Seen: August 29, 2024 Resident Creating Document: KARLY PICKETT RESIDENT Medical Necessity Reason Pt with a Central, PICC or Fol: No Subjective Review of Systems Patient seen and examined at the bedside. Patient reported improvement in her symptoms since admission except mild shortness of breath and cough. Chest x-ray showing findings suggestive of CHF and patient has a history of amphetamine abuse, ordered 2D echocardiogram. Patient found to have Bacteremia due to E coli, change the antibiotic to Rocephin. Patient reports: No new complaints Objective vital signs Vital Sign Date Time Temp Pulse Resp B/P (MAP) Pulse Ox O2 Delivery O2 Flow Rate FiO2 08/29/24 13:00 98.1 93 17 145/98 (114) 97 98.1 08/29/24 08:00 Room Air* 0 21 Total Intake and Output 08/28/24 08/28/24 08/29/24 15:00 23:00 07:00 Intake Total 475 ml 1250 ml 100 ml Balance 475 ml 1250 ml 100 ml medications Current Medications Medications Dose Ordered Sig/Pedro Route Start Time Stop Time Status Last Admin Dose Admin Acetaminophen/ Hydrocodone Bitart 1 tab Q4HP PRN PO 08/26/24 20:00 08/27/24 16:11 1 TAB Ondansetron HCl 4 mg Q4HP PRN IV 08/26/24 20:00 Acetaminophen 650 mg Q6HP PRN PO 08/26/24 20:00 08/29/24 11:29 650 MG Sodium Chloride 1,000 ml @ 125 mls/hr Q8H IV 08/27/24 09:30 08/29/24 10:02 125 MLS/HR Tamsulosin HCl 0.4 mg QPM PO 08/28/24 18:00 08/28/24 17:37 0.4 MG Ergocalciferol 50,000 unit Q7D PO 08/27/24 10:30 08/27/24 11:39 50,000 UNIT Diagnostic Test (Pha) 1 strip ACHS 08/28/24 11:30 08/29/24 11:14 1 STRIP Insulin Human Regular ACHS SC 08/28/24 11:30 08/29/24 11:33 3 UNITS Dextrose 50 ml UD PRN IV 08/28/24 08:00 Ceftriaxone Sodium 50 ml @ 100 mls/hr DAILY@09 IV 08/30/24 09:00 Examination Pt is lying on bed General Appearance: Alert, Oriented X3, Cooperative, Not in acute distress HEENT: Atraumatic, Mucous membranes moist/pink Respiratory: Clear to auscultation, Normal air movement, No added sounds Cardiovascular: Regular rate, Normal S1, Normal S2, No murmurs Abdominal: LLQ, left flank tenderness. Active bowel sounds, Soft, no distention, Extremities: No edema, Normal pulses, No tenderness/swelling Skin: No Significant rash, except past surgical scars Neuro: Normal speech, sensorimotor deficits none Psych/Mental Status: Mental status NL, Mood NL Nurse was there as sharperone during examination laboratory and microbiology Laboratory Tests 08/29/24 04:44 Test 08/29/24 04:44 Range/Units Serum Glucose 185 H 74-106 mg/dL Microbiology Date/Time Source Procedure Growth Status 08/26/24 17:53 Blood Blood Culture - Final Escherichia coli Complete 08/26/24 17:09 Voided Urine Urine Culture - Final Escherichia coli Complete Labs and/or images reviewed: Labs reviewed by me, Image(s) reviewed by me Problem List/Assessment/Plan Problem List/Assessment/Plan # ? Pyelonephritis # Sepsis from underlying pyelonephritis E coli # Acute complicated cystitis likely from E coli # Gram-negative bacteremia E coli # Nonobstructive left nephrolithiasis - evident on urinalysis - CT abdominal pelvis showed mild left perinephric inflammatory changes along with nonobstructive left nephrolithiasis - ordered urine/blood culture- Gram-negative bacteremia E coli - Rocephin - DC cefepime - tamsulosin and give IVF - pain management as needed - Zofran as needed # rule out structural heart disease # methamphetamine and marijuana abuse -counseled regarding cessation for more than 17 minutes -ordered echocardiogram # Hypokalemia- improving - Repleting - Monitor lab # hepatic steatosis with hepatomegaly # mild hyperbilirubinemia - evident on CT, required outpatient follow up with the GI - and dietary modifications # morbid obesity with a BMI 39.1 - dietary counseling and lifestyle modification changes # hypomagnesemia- improved -repleting # Vit D deficiency - Repleting No GI PPX needed No VTE PPX needed as patient is ambulatory Regular diet Goals of care discussed with the patient for more than 29 minutes: Full code status Case discussed with Dr. Castle, patient and RN Plan discussed with: Patient My Orders My Orders Orders - PIYUSH,KHAJA RESIDENT Procedure Category Date Status Time Ceftriaxone 1gm/50ml PHA 08/30/24 In Process D5w (Rocephin) 09:00 KARLY PICKETT August 29, 2024 14:33
--- NOTE | 2024-08-29 16:55 | MEDREC ---
[facility] Intervention Section I [facility] Intervention: Dose optimization(PK/PD) (The Final Blood culture showed E.coli. Please consider increasing dose of Ceftriaxone to 2 grams daily for bacteremia ) PHUC GROSS August 29, 2024 16:55
[2024-08-30 05:00] VITALS: BP 147/97; PULSE 95; RESP 18; TEMP 98.6; O2SAT 100
[2024-08-30 07:28] LABS: Anion Gap 11 (5-15); Carbon Dioxide 22 mmol/L (20-31); Sodium 140 mmol/L (136-145)
[2024-08-30 07:29] LABS: Calcium 9.3 mg/dL (8.7-10.4)
[2024-08-30 07:30] LABS: Basophils # (auto) 0 10 ^3/uL (0-0.2); Basophils % (auto) 0.8 % (0.0-2.0); Eosinophils # (auto) 0.1 10 ^3/uL (0-0.8); Eosinophils % (auto) 1.8 % (0.0-7.0); Hematocrit 32.5 % (36.0-46.0); Hemoglobin 11.4 g/dL (12.2-16.2); Lymphocytes # (auto) 1.2 10 ^3/uL (0.4-5.4); Lymphocytes % (auto) 24.2 % (10.0-50.0); Mean Corpuscular Hemoglobin 30.2 pg (28.0-32.0); Mean Corpuscular Volume 86.1 fL (80.0-100.0); Monocytes # (auto) 0.4 10 ^3/uL (0-1.3); Monocytes % (auto) 8.3 % (0.0-12.0); Neutrophils # (auto) 3.2 10 ^3/uL (1.6-8.6); Neutrophils % (auto) 64.9 % (37.0-80.0); Platelet Count (auto) 243 10^3/uL (140-450); Red Blood Cells 3.78 10^6/uL (4.0-5.20); Red Cell Distribution Width 13.7 % (11.8-14.3); White Blood Cell 4.9 10^3/uL (4.4-10.8)
[2024-08-30 07:32] LABS: Chloride 107 mmol/L (98-107); Potassium 3.5 mmol/L (3.5-5.1)
[2024-08-30 07:34] LABS: BUN/Creatinine Ratio 9.5 (10.0-20.0)
[2024-08-30 07:43] LABS: Blood Urea Nitrogen 6 mg/dL (9-23); Glucose 147 mg/dL (74-106)
[2024-08-30 08:00] VITALS: PULSE 92; PULSE 94; RESP 16; O2SAT 97
[2024-08-30 09:00] VITALS: BP 125/91; PULSE 94; RESP 18; TEMP 98.6; O2SAT 97
[2024-08-30] MEDS: cefTRIAXone 2GM/50ML D5W 50 ML IV SCH (09:31)
--- NOTE | 2024-08-30 12:15 | DVHDSRES ---
Discharge Summary Date of Admission Resident Creating Document: KARLY PICKETT RESIDENT August 26, 2024 at 19:55 Date of Discharge: August 30, 2024 Admitting Diagnosis lower abdominal pain. Labs/Diagnostic Data: PATIENT: MAITE VIRK ACCT: [id number] UNIT: [id number] : 1980 LOC: [facility] ROOM / BED: 021T / A AGE / SEX: 44 / F ADM STATUS: ADM IN SERVICE 1054 ORDERING PHYSICIAN: KARLY PICKETT PROCEDURE(s): CXR1 - CHEST XRAY 1 VIEW REASON: COUGH ORDER NUMBER(s): [id number], ACCESSION NUMBER(s): [id number] CHEST RADIOGRAPH Indication: COUGH Technique: Single frontal view of the chest was obtained Comparison: None FINDINGS: Lines and Tubes: None Lungs: No focal consolidation. Pleura: No effusion. No pneumothorax. Cardiomediastinal contours: Unremarkable Bones: No acute osseous abnormality. IMPRESSION: Cardiomegaly with mild CHF ATED BY: NEAL NASH MD DICTATED DATE/TIME: 08/28/24 1320 PATIENT: MAITE VIRK ACCT: [id number] UNIT: [id number] : 1980 LOC: ER ROOM / BED: / AGE / SEX: 44 / F ADM STATUS: REG ER SERVICE 1710 ORDERING PHYSICIAN: CONCHITA MELLO PROCEDURE(s): ABPL - CT AB PEL WO CON-NO ORAL OR IV REASON: abd pain ORDER NUMBER(s): [id number], ACCESSION NUMBER(s): [id number] Exam: CT CT AB PEL WO CON-NO ORAL OR IV History: abd pain Comparison Study: None TECHNIQUE: Multidetector CT of the abdomen and pelvis was performed from lung bases to pubic symphysis. Imaging was performed without IV contrast. Axial, coronal, and sagittal multiplanar reformats were obtained from the axial data set by the technologist. RADIATION DOSE: DLP 1054.48 mGy.cm; CTDI vol 18.81 mGy. Findings: Lungs: The lung bases are clear. Heart: No cardiomegaly or pericardial effusion. Liver: Fatty infiltration of the liver. Liver measures 20.0 cm in craniocaudal dimension. Gallbladder: Cholecystectomy. Spleen: Unremarkable Pancreas: Unremarkable Adrenals: Unremarkable Kidneys: Punctate nonobstructive left nephrolithiasis. Mild left perinephric inflammatory changes. No evidence of ureteral or urinary bladder calculi. GI tract: Unremarkable : Unremarkable. Vasculature: Unremarkable Lymphadenopathy: Absent Peritoneum: No ascites Musculoskeletal: Mild multilevel degenerative changes of the thoracolumbar spine. Soft tissues: Unremarkable Impression: 1. No acute abdominopelvic abnormalities. 2. Mild left perinephric inflammatory changes with nonobstructive left nephrolithiasis. Findings may reflect a recently passed calculus. 3. No evidence of ureteral or urinary bladder calculi. 4. Hepatomegaly with hepatic steatosis. ATED BY: SONI GAMEZ DO DICTATED DATE/TIME: 08/26/24 9312 Laboratory Results Test 08/30/24 11:17 08/30/24 05:42 08/29/24 04:44 08/28/24 05:26 POC Glucose 172 mg/dl (70-106) White Blood Count 4.9 10^3/uL (4.4-10.8) Red Blood Count 3.78 10^6/uL (4.0-5.20) Hemoglobin 11.4 g/dL (12.2-16.2) Hematocrit 32.5 % (36.0-46.0) Mean Corpuscular Volume 86.1 fL (80.0-100.0) Mean Corpuscular Hemoglobin 30.2 pg (28.0-32.0) Mean Corpuscular Hemoglobin Concent 35.0 g/dL (32.0-36.0) Red Cell Distribution Width 13.7 % (11.8-14.3) Platelet Count 243 10^3/uL (140-450) Mean Platelet Volume 7.5 fL (6.9-10.8) Neutrophils (%) (Auto) 64.9 % (37.0-80.0) Lymphocytes (%) (Auto) 24.2 % (10.0-50.0) Monocytes (%) (Auto) 8.3 % (0.0-12.0) Eosinophils (%) (Auto) 1.8 % (0.0-7.0) Basophils (%) (Auto) 0.8 % (0.0-2.0) Neutrophils # (Auto) 3.2 10 ^3/uL (1.6-8.6) Lymphocytes # (Auto) 1.2 10 ^3/uL (0.4-5.4) Monocytes # (Auto) 0.4 10 ^3/uL (0-1.3) Eosinophils # (Auto) 0.1 10 ^3/uL (0-0.8) Basophils # (Auto) 0 10 ^3/uL (0-0.2) Nucleated Red Blood Cells 0.0 % Sodium Level 140 mmol/L (136-145) Potassium Level 3.5 mmol/L (3.5-5.1) Chloride Level 107 mmol/L (98-107) Carbon Dioxide Level 22 mmol/L (20-31) Anion Gap 11 (5-15) Blood Urea Nitrogen 6 mg/dL (9-23) Creatinine 0.63 mg/dL (0.550-1.02) Glomerular Filtration Rate Calc 111 mL/min (>90) BUN/Creatinine Ratio 9.5 (10.0-20.0) Serum Glucose 147 mg/dL (74-106) Calcium Level 9.3 mg/dL (8.7-10.4) Total Bilirubin 0.3 mg/dL (0.2-1.0) Aspartate Amino Transferase (AST) 56 U/L (13-40) Alanine Aminotransferase (ALT) 61 U/L (7-40) Alkaline Phosphatase 137 U/L (46-116) B-Type Natriuretic Peptide 31.96 pg/mL (0-100) Total Protein 6.8 g/dL (5.7-8.2) Albumin 3.9 g/dL (3.2-4.8) Magnesium Level 1.7 mg/dL (1.6-2.6) Test 08/27/24 05:51 08/26/24 19:37 08/26/24 17:36 08/26/24 17:09 Hemoglobin A1c 7.8 % A1C (<5.7) Direct Bilirubin 0.4 mg/dL (<0.3) Vitamin B12 Level 263 pg/mL (211-911) Vitamin D 25-Hydroxy 12.9 ng/mL (30.0-100) Thyroid Stimulating Hormone (TSH) 0.57 uIU/mL (0.55-4.78) Beta HCG, Quantitative 0.3 mIU/mL (1.5-4.2) Plasma/Serum Blood Alcohol < 3.0 mg/dL (<10) Lactic Acid Level 1.7 mmol/L (0.4-2.0) Lipase 33 U/L (12-53) Urine Color Yellow (Yellow) Urine Clarity Turbid (Clear) Urine pH 6.0 (5.0-9.0) Urine Specific Rhame 1.016 (1.001-1.035) Urine Protein Negative (Negative) Urine Ketones Negative (Negative) Urine Blood Negative /uL (Negative) Urine Nitrite Negative (Negative) Urine Bilirubin Negative (Negative) Urine Urobilinogen 6 mg/dL (Negative) Urine Leukocyte Esterase 3+ /uL (Negative) Urine RBC 1 /hpf (0 - 4) Urine Microscopic WBC 70 /HPF (0-5) Urine Squamous Epithelial Cells Few /hpf (<5) Urine Bacteria Mod /hpf (None Seen) Urine Mucus Few (None Seen) Urine Glucose 3+ mg/dL (Normal) Urine Opiates Screen Neg (NEGATIVE) Urine Fentanyl Screen Neg (NEGATIVE) Urine Barbiturates Screen Neg (NEGATIVE) Urine Phencyclidine Screen Neg (NEGATIVE) Urine Amphetamines Screen Pos (NEGATIVE) Urine Benzodiazepines Screen Neg (NEGATIVE) Urine Cocaine Screen Neg (NEGATIVE) Urine Cannabinoids Screen Pos (NEGATIVE) Other Laboratory Tests 08/30/24 05:42 Brief Hx & Hospital Course: History of Presenting illness Maite Virk is a 44-year-old female with no significant PMH presented to the ED with a chief complaint of lower abdominal pain since 2 days prior to admission. Patient reported pain and has been started slowly in lower abdomen mostly in left lower quadrant associated with the nausea but no vomiting or diarrhea. The patient also reported she has been having some fevers. The patient denies other associated symptoms. PMH: Recurrent UTIs PSH: Family history: Noncontributory Social History: Lives with family. Denies smoking, alcohol and other drug abuse allergies no known allergies Brief Hospital Course Patient is a 44-year-old female with past medical history of recurrent UTI presented to the ED with abdominal pain that has been going on for at least 2 days prior to admission. According to patient, pain started slowly in the lower abdomen with radiation to the left lower quadrant associated with nausea but no vomiting. In the ED urinalysis revealed evidence of UTI and urine culture revealed E coli. Patient was treated with ceftriaxone for the past 2 days. Sensitivity showed the E coli sensitive to so many good antibiotics. We will send the patient home on ciprofloxacin 500 mg b.i.d. for the next 10 days because this is a complicated UTI. Review of system Constitutional: Denies fever no chills no feeling of malaise HEENT: Denies headache, ear pain, ear discharges, conjunctivitis, nasal discharge throat pain Cardiovascular: Denies chest pain, palpitation, orthopnea, PND, or pedal edema Respiratory: Denies shortness of breath, cough cough, sputum production, hemoptysis, GI: Denies abdominal pain, nausea, vomiting, diarrhea, hematemesis, hematochezia, : Denies frequency, urgency, hematuria, Endocrine: Denies unintentional weight gain or weight loss, feeling of hot flashes, Rich: Denies easy bruising, bleeding disorders, epistaxis Musculoskeletal: Denies joint pains, muscle aches Psych: No evidence of depression, favio, suicidal ideation Examination General Appearance: Alert, Oriented X3, Cooperative, No acute distress HEENT: Atraumatic, PERRLA, EOMI, Mucous membrane moist/pink Respiratory: Clear to auscultation, Normal air movement Cardiovascular: Regular rate, Normal S1, Normal S2, No murmurs, no chest wall tenderness Abdominal: NO distention, no tenderness, bowel sounds present, no scars noted Extremities: No clubbing, No cyanosis, No edema, Normal pulses, No tenderness/swelling Skin: No rashes, No breakdown, No significant lesion Neuro: Normal gait, Normal speech, Strength at 5/5 X4 ext, Normal tone, Sensation intact, Cranial nerves 3-12 NL, Reflexes 2+ Psych/Mental Status: Mental status NL, Mood NL Diagnoses Acute complicated cystitis likely from E coli Gram-negative bacteremia E coli Possible Pyelonephritis Nonobstructive left nephrolithiasis rule out structural heart disease methamphetamine and marijuana abuse Hypokalemia- improving hepatic steatosis with hepatomegaly mild hyperbilirubinemia morbid obesity with a BMI 39.1 hypomagnesemia- Vit D deficiency Cardiomegaly with mild CHF on CXR Obesity grade 3, BMI: 41.2 Discharge plan Follow up at the d/c in a week Antibiotics ( Ciprofloxacin 500 mg bid for 10 days) follow up with PCP Discharge plan discussed with DR. Castle Condition at Discharge: Good Final Diagnosis/Problems List Acute complicated cystitis likely from E coli Gram-negative bacteremia E coli Possible Pyelonephritis Nonobstructive left nephrolithiasis rule out structural heart disease methamphetamine and marijuana abuse Hypokalemia- improving hepatic steatosis with hepatomegaly mild hyperbilirubinemia morbid obesity with a BMI 39.1 hypomagnesemia- Vit D deficiency Cardiomegaly with mild CHF on CXR Obesity grade 3, BMI: 41.2 Discharge Disposition: Home Discharge Instruct/Medications Diet: Regular Activity: No Restrictions, As Tolerated Follow Up/Referral: 1 week at the d/c clinic Medications: ciprofloxacin 500mg po bid for 5 days Discharge Statement: "Patient was advised to return to the ER or call 911 if any headaches, dizziness, shortness of breath, chest pain, abdominal pain, bleeding, fevers, or worsening of medical condition. Patient was counseled about treatment plan, medications, possible side effects, patientverbalized understanding. All questions were answered to the best of my ability. This discharge took greater then 30 minutes in planning, reviewing documentation, counseling the patient, and discussing with other team members." ASSESSMENT ASSESSMENT Assessment Acute complicated cystitis likely from E coli Gram-negative bacteremia E coli Possible Pyelonephritis Nonobstructive left nephrolithiasis rule out structural heart disease methamphetamine and marijuana abuse Hypokalemia- improving hepatic steatosis with hepatomegaly mild hyperbilirubinemia morbid obesity with a BMI 39.1 hypomagnesemia- Vit D deficiency MAGEN LIZARRAGA RESIDENT August 30, 2024 12:15
[2024-08-30 12:44] VITALS: BP 125/91; PULSE 94; RESP 18; TEMP 98.6; O2SAT 97
[2024-08-30] MEDS ORDERED: CIPR500T4 PO (13:39)
--- NOTE | 2024-08-31 02:47 | DVHSR ---
APPROVED REPORT EXAM: Two-dimensional and M-mode echocardiogram with Doppler and color Doppler. Blood Pressure: 131/86 mmHg INDICATION CHF RISK FACTORS Obesity: Height: 4'11, Weight: 207 DIMENSIONS LVDd4.6 (3.8-5.7cm)LA (2D)3.6 (1.9-4.0cm)Aortic Root2.7 (2.0-3.7cm) LVDs3.3 (2.5-4.0cm)LA (MM) (1.9-4.0cm)Aortic Cusp Exc1.6 (1.5-2.0cm) EF (%) 53.0 (55-70%)Rt. Atrium3.1 (1.9-4.0cm)Asc. Aorta cm IVSd0.7 (0.7-1.1cm)RV (D) (1.8-2.4cm) PWd0.9 (0.7-1.1cm) Mitral Valve MitralMitral Stenosis E wave0.90m/sMV Mean GR.mmHg A wave0.70m/sMV Peak GR.mmHg E/A ratio1.32D MVAcm2 DECEL [id number] 1/2 [place] Aortic Valve Aortic ValveAortic Stenosis V10.94m/[place] Mean GR.4mmHg V21.36m/[place] Peak GR.7mmHg LVOT Diameter2.2 (1.8-2.4cm)Doppler AVA2.63cm2 Pulmonic Valve V21.06m/s Tricuspid Valve TR Velocity2.59m/s [id number] Other Information Quality : Technically LimitedRhythm : Technically limited study due to patient position.body habitus. 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
== END 2024-08-30 13:35 | disposition home or self-care (01) | DRG 720 ==
LOC: ER 17:02 → OVERFLOW 19:55 → CENTRAL 21:50 → TELE-CENTR 08-27 18:33
PROVIDERS: ADMIT Student in an Organized Health Care Education/Training Program; ATTEND Nurse Practitioner Family
DX: A41.51 Sepsis due to Escherichia coli [E. coli] (principal); E87.20 Acidosis, unspecified; K76.0 Fatty (change of) liver, not elsewhere classified; I50.9 Heart failure, unspecified; R16.0 Hepatomegaly, not elsewhere classified; Z68.39 Body mass index [BMI] 39.0-39.9, adult; F12.10 Cannabis abuse, uncomplicated; F15.10 Other stimulant abuse, uncomplicated; N20.0 Calculus of kidney; R73.9 Hyperglycemia, unspecified; E87.6 Hypokalemia; E80.6 Other disorders of bilirubin metabolism; E55.9 Vitamin D deficiency, unspecified; N30.00 Acute cystitis without hematuria; Z87.440 Personal history of urinary (tract) infections; E66.813 Obesity, class 3; I51.7 Cardiomegaly
CPT/HCPCS: 36415; 71045; 74176; 76775; 80048; 80053; 80076; 80307; 80320; 81001; 82306; 82607; 82962; 83036; 83605; 83690; 83735; 83880; 84443; 84702; 85025; 87040; 87077; 87086; 87088; 87186; 93306; 96365; G0378; J1815

== ENCOUNTER 2024-12-26 23:54 | Emergency (ER) | payer SELFPAY ==
[~2024-12-26] VITALS: Ht 149.9 cm; Wt 88.2 kg
[~2024-12-26 23:54] MED LIST: CIPR500T4 PO
--- NOTE | 2024-12-27 02:20 | ED.PDOC ---
Eye-HPI HPI Comments PT PRESENTE TO ED CC RIGHT TOOTH PAIN X1 WEEK. PT STATES TOOTH PAIN HAS INCREASED AND IS NOW HURTING HER RIGHT EAR, SIDE OF FACE, AND BOTTOM JAW. PT A&OX4, GCS 15, AMBULATORY. HAS NOT BEEN TO SEE A DENTIST, TOOK EXTRA STRENGTH TYLENOL AT 2200. Denies chest pain, difficulty breathing, shortness of breath, throat swelling, nausea, vomiting, fever or chills. Chief Complaint: Tooth Pain Time Seen by MD: 00:00 Primary Care Provider: NONE Reviewed Notes: Nurses Notes, Medications, Allergies Allergies: Coded Allergies: NO KNOWN ALLERGIES (Unverified , 08/26/24) Home Meds Active Scripts Clindamycin Hcl (Clindamycin Hcl) 300 Mg Cap, 300 MG PO QID for 7 Days, #28 CAP Prov:RUBÉN CROWELL SENIOR RESEARCH SCIENTIST 12/27/24 Ciprofloxacin Hcl (Ciprofloxacin Hcl) 500 Mg Tab, 1 TAB PO BID for 10 Days, #20 TAB Prov:MAGEN LIZARRAGA RESIDENT 08/30/24 Information Source: Patient Mode of Arrival: Ambulatory Past Medical History PAST MEDICAL HISTORY: Denies Surgical History: Denies all surgeries INTELLECTUAL PROPERTY MANAGER History: No Pertinent INTELLECTUAL PROPERTY MANAGER History All Other Systems: Reviewed and Negative (see hpi) Physical Exam General Appearance: No Apparent Distress, Normal HEENT: Normal ENT Inspection, Pharynx Normal, TMs Normal, Other (MULTIPLE DECAYED TEETH RIGHT LOWER JAW) Neck: Full Range of Motion, Non-Tender, Normal, Normal Inspection Respiratory: Lungs Clear, No Respiratory Distress, Normal Breath Sounds Cardiovascular: No Edema, No JVD, No Murmur, No Gallop, Normal Peripheral P ulses, Regular Rate/Rhythm Breast Exam: Deferred Gastrointestinal: No Organomegaly, Non Tender, No Pulsatile Mass, Normal Bowel Sounds, Soft Genitalia: Deferred Pelvic: Deferred Rectal: Deferred Extremities: Normal capillary refill, Normal range of motion Musculoskeletal : Apperance: Normal Neurologic: Alert, No Motor Deficits, Normal Affect, Normal Mood, No Sensory Deficits Cerebellar Function: Normal Reflexes: NOT DONE Skin: Dry, Normal Color, Warm Lymphatic: No Adenopathy Was a procedure done? Was a procedure done?: No EENT DIFF Eye: N/A Sore Throat: Shlomo's Angina, Peritonsillar Abscess, Peritonsillar Cellulitis, Pharyngitis X-Ray, Labs, Meds, VS Vital Signs Date Time Temp Pulse Resp B/P (MAP) Pulse Ox O2 Delivery O2 Flow Rate FiO2 12/26/24 23:56 98.2 73 16 180/110 98 98.2 X-Ray, Labs, Meds, VS Comment PATIENT GIVEN TORADOL 60 MG IM, ROCEPHIN 1 G IM, PERCOCET 5 MG P.O. AND HURRICAINE SPRAY. PATIENT REPORTS IMPROVEMENT IN PAIN AND FUNCTION REQUESTING DISCHARGE AT THIS TIME. SCRIPT TRIAL OF CLINDAMYCIN AND IBUPROFEN ADVISED TAKE MEDICATION PRESCRIBED SIDE EFFECTS DISCUSSED. ADVISED TO CONSIDER TAKING DAILY YOGURT OR PROBIOTIC WHILE ANTIBIOTICS. ADVISED TO FOLLOW UP WITH DENTAL FOR RESOLUTION. ER RETURN PRECAUTIONS GIVEN PATIENT INDICATES UNDERSTANDING AGREES WITH DISCHARGE PLAN OF CARE. Time of 1ST Reevaluation: 00:00 Reevaluation 1ST: Unchanged Time of 2ND Reevaluation: 02:24 Reevaluation 2ND: Improved Patient Education/Counseling: Diagnosis, Treatment, Prognosis, Need For Follow Up Family Education/Counseling: Diagnosis, Treatment, Prognosis, Need For Follow U p SEPSIS Sepsis Screen Date sepsis recognized/suspect: Dec 26, 2024 Time Sepsis recognized/suspect: 2355 Recent Procedure: No On Antibiotic Therapy: No Respiratory Rate >20: No Heart Rate >90: No Temp<36 C (96.8 F) or >38.3 C: No SBP <90 or MAP <65 mmHG: No New Acute Mental Status Change: No Is the patient on CPAP, BIPAP,: No Vital Signs Date Time Temp Pulse Resp B/P (MAP) Pulse Ox O2 Delivery O2 Flow Rate FiO2 12/26/24 23:56 98.2 73 16 180/110 98 98.2 Departure 1 Departure Time of Disposition: 02:24 Impression: Primary Impression: Abscess, dental Disposition: 01 HOME / SELF CARE / HOMELESS Condition: Stable e-Prescriptions Clindamycin Hcl (Clindamycin Hcl) 300 Mg Cap 300 MG PO QID for 7 Days, #28 CAP Prov: RUBÉN CROWELL 12/27/24 Discharged With: Self Critical Care Note Critical Care Time?: No Stability Stability form required: RUBÉN Fan Dec 27, 2024 02:20
[2024-12-27] MEDS ORDERED: CLIN1CAP70 PO (02:26)
[2024-12-27] MEDS: OXYCODONE W/ ACETAMINOPHEN 5/325MG TABLET PO ONE (02:30)
[2024-12-27] MEDS: cefTRIAXone SOD 1,000 MG VL IM ONE (02:30)
[2024-12-27] MEDS: KETOROLAC TROMETH 60MG/2ML VIAL IM ONE (02:30)
[2024-12-27] MEDS: BENZOCAINE (DENTAL) 20 % SPRAY 60ML MT ONE (02:30)
[2024-12-27 03:26] VITALS: BP 151/100; PULSE 69; RESP 16; TEMP 98.1; O2SAT 98
== END 2024-12-27 03:29 | disposition home or self-care (01) ==
LOC: ER 23:54
DX: K04.7 Periapical abscess without sinus (principal)
CPT/HCPCS: 96372; 99284; J0696; J1885

== ENCOUNTER 2025-02-15 19:28 | Emergency (ER) | payer MEDICAID, OTHER ==
[~2025-02-15] VITALS: Ht 149.9 cm; Wt 86.7 kg
[2025-02-15 19:30] VITALS: BP 127/85; PULSE 75; RESP 20; TEMP 99.1; O2SAT 97
== END 2025-02-15 22:30 | disposition left against medical advice (07) ==
LOC: ER 19:28
DX: R10.A2 Flank pain, left side (principal); Z53.21 Procedure and treatment not carried out due to patient leaving prior to being seen by health care provider